=== PATIENT | male | born 1940 | race Caucasian/White ===

== ENCOUNTER 2020-03-10 13:29 | Inpatient (IN) | payer OTHER ==
[~2020-03-10] VITALS: Ht 170.2 cm; Wt 90.7 kg
[~2020-03-10 13:29] MED LIST: HYZAAR 100/25 T1 TAB; ZOCOR20 MG
[2020-03-10] MEDS ORDERED: COZAAR100 MG (14:01)
[2020-03-10] MEDS ORDERED: HYDROCHLOROTHIA25 MG (14:01)
== END 2020-05-09 12:00 | disposition other institution (70) | DRG 4 ==
LOC: ER 13:29 → ICU 23:50 → ICU-2 23:50 → ICU 03-26 04:29 → MEDI 03-29 14:05 → ICU 03-29 22:02
PROVIDERS: Surgery; ADMIT Internal Medicine; ATTEND Internal Medicine
PROC: B24BZZZ Ultrasonography of Heart with Aorta (ICD-10-PCS; 2020-03-10)
PROC: 4A12X4Z Monitoring of Cardiac Electrical Activity, External Approach (ICD-10-PCS; 2020-03-10)
PROC: BW28ZZZ Computerized Tomography (CT Scan) of Head (ICD-10-PCS; 2020-03-10)
PROC: CB2YYZZ Tomographic (Tomo) Nuclear Medicine Imaging of Respiratory System using Other Radionuclide (ICD-10-PCS; 2020-03-12)
PROC: 5A09557 Assistance with Respiratory Ventilation, Greater than 96 Consecutive Hours, Continuous Positive Airway Pressure (ICD-10-PCS; 2020-03-13)
PROC: 4A033R1 Measurement of Arterial Saturation, Peripheral, Percutaneous Approach (ICD-10-PCS; 2020-03-13)
PROC: 5A1955Z Respiratory Ventilation, Greater than 96 Consecutive Hours (ICD-10-PCS; 2020-03-18)
PROC: 0BH17EZ Insertion of Endotracheal Airway into Trachea, Via Natural or Artificial Opening (ICD-10-PCS; 2020-03-18)
PROC: 02HV33Z Insertion of Infusion Device into Superior Vena Cava, Percutaneous Approach (ICD-10-PCS; 2020-03-18)
PROC: 5A1955Z Respiratory Ventilation, Greater than 96 Consecutive Hours (ICD-10-PCS; 2020-03-29)
PROC: 0BH17EZ Insertion of Endotracheal Airway into Trachea, Via Natural or Artificial Opening (ICD-10-PCS; 2020-03-29)
PROC: BW28ZZZ Computerized Tomography (CT Scan) of Head (ICD-10-PCS; 2020-03-30)
PROC: 30233N1 Transfusion of Nonautologous Red Blood Cells into Peripheral Vein, Percutaneous Approach (ICD-10-PCS; 2020-04-07)
PROC: 0DH63UZ Insertion of Feeding Device into Stomach, Percutaneous Approach (ICD-10-PCS; 2020-04-16)
PROC: 3E0G76Z Introduction of Nutritional Substance into Upper GI, Via Natural or Artificial Opening (ICD-10-PCS; 2020-04-16)
PROC: 0B110F4 Bypass Trachea to Cutaneous with Tracheostomy Device, Open Approach (ICD-10-PCS; principal; 2020-04-16 15:15)
PROC: 8E0ZXY6 Isolation (ICD-10-PCS; 2020-04-20)
PROC: 0D20XUZ Change Feeding Device in Upper Intestinal Tract, External Approach (ICD-10-PCS; 2020-04-22)
PROC: 0DP6XUZ Removal of Feeding Device from Stomach, External Approach (ICD-10-PCS; 2020-04-25)
PROC: BW20ZZZ Computerized Tomography (CT Scan) of Abdomen (ICD-10-PCS; 2020-05-01)
PROC: 0DH63UZ Insertion of Feeding Device into Stomach, Percutaneous Approach (ICD-10-PCS; 2020-05-04)
DX: F10.231 Alcohol dependence with withdrawal delirium (principal); I21.A1 Myocardial infarction type 2; J15.1 Pneumonia due to Pseudomonas; A41.9 Sepsis, unspecified organism; J96.01 Acute respiratory failure with hypoxia; I46.8 Cardiac arrest due to other underlying condition; B37.1 Pulmonary candidiasis; G93.1 Anoxic brain damage, not elsewhere classified; J98.11 Atelectasis; I48.92 Unspecified atrial flutter; N17.8 Other acute kidney failure; K92.0 Hematemesis; E87.0 Hyperosmolality and hypernatremia; E87.4 Mixed disorder of acid-base balance; L97.819 Non-pressure chronic ulcer of other part of right lower leg with unspecified severity; F10.221 Alcohol dependence with intoxication delirium; F10.239 Alcohol dependence with withdrawal, unspecified; E86.0 Dehydration; I44.0 Atrioventricular block, first degree; D69.6 Thrombocytopenia, unspecified; Z20.828 Contact with and (suspected) exposure to other viral communicable diseases; I35.0 Nonrheumatic aortic (valve) stenosis; E87.5 Hyperkalemia; E66.8 Other obesity; I11.0 Hypertensive heart disease with heart failure; I50.9 Heart failure, unspecified; D64.9 Anemia, unspecified; K94.29 Other complications of gastrostomy; E87.6 Hypokalemia; G25.3 Myoclonus; Z20.822 Contact with and (suspected) exposure to COVID-19; R13.19 Other dysphagia